=== PATIENT | female | born 1975 | race Caucasian/White ===

== ENCOUNTER 2019-05-13 12:38 | Emergency (ER) | payer MEDICAID, OTHER ==
[~2019-05-13] VITALS: Ht 154.9 cm; Wt 48.2 kg
[~2019-05-13 12:38] MED LIST: FLUT16SP17 NASAL; GUAI120S25 PO; IBUP-1561 PO; PSEU120T68 PO
[2019-05-13 12:44] VITALS: PULSE 63; Ht 154.9 cm; Wt 48.2 kg
[2019-05-13] MEDS ORDERED: IBUPROFEN 200 MG TAB PO ONE (14:30)
[2019-05-13 16:03] VITALS: RESP 18
== END 2019-05-13 16:03 | disposition home or self-care (01) ==
LOC: FTE 12:38
DX: J06.9 Acute upper respiratory infection, unspecified (principal); F17.210 Nicotine dependence, cigarettes, uncomplicated
CPT/HCPCS: 71045; 80048; 81001; 81025; 85025; Z7502; Z7610